=== PATIENT | female | born 1975 | race Two or more races ===

== ENCOUNTER 2016-11-06 20:25 | Emergency (ER) | payer BC ==
--- NOTE | 2016-11-11 15:06 | ER ---
ADMIT: 11/06/2016 RM/LOC: ER [facility] MR#: [id number] [facility] [address] [place], [place] [id number] KENYETTA WITT [address] [place] [address] Emergency Room Report SEX: F AGE: 41 : 1975 DATE: 11/06/2016 HISTORY OF PRESENT ILLNESS: The patient is a 41-year-old female, presents to the emergency room with abdominal pain, mainly epigastric area. She states she is on her menses now, but she is unable to stand still. She has had some nausea, vomiting. She said she felt like she needed to go to the bathroom to have a bowel movement and was unable to. She ate pizza today. States she has never had any issues like this before, so she got a little anxious and came to the ER. PHYSICAL EXAMINATION: VITAL SIGNS: Blood pressure 153/88, heart rate 77, respirations 18, temp is 98, and O2 sats 100%. GENERAL: Moderately anxious as mentioned. NECK: Supple. RESPIRATIONS: No distress. CARDIOVASCULAR: Regular in rate and rhythm. ABDOMEN: Above navel area tenderness. No guarding, no rebound. No McBurney's point tenderness. SKIN: Good color and turgor. EXTREMITIES: Nontender. NEUROLOGIC: Oriented x4. Mood and affect are appropriate. LABORATORY DATA: I did do labs on her, the white count looks good. The potassium is 3.2 with a glucose of 120. Lipase and amylase both normal. Urine is negative for . UA; RBCs 5, blood 1+ and she is having her menses, and H. pylori reactive. She was notified of her diagnosis and she requested a week off from work, which was denied. I did give her prescription for clarithromycin, amoxicillin and omeprazole, and started her on Carafate in the ER. I also put an IV on her and gave her some fluids and 4 mg of IV Zofran. See instructions on T-sheet. DISCHARGE INSTRUCTIONS: Follow up with Naima Conner and finish her antibiotics, take them according to the prescription. The patient verbalized understanding. CATHERINE Luong / Kenneth Stone MD / [facility] JOB #: [id number] CC: Kenneth Stone MD, Attending Physician Abdifatah Conner MD, Family Physician
== END 2016-11-06 21:59 | disposition home or self-care (01) ==
LOC: ER 20:25
DX: K29.00 Acute gastritis without bleeding (principal)